=== PATIENT | male | born 1990 | race Caucasian/White ===

== ENCOUNTER 2019-06-27 20:09 | Emergency (ER) | payer OTHER ==
[~2019-06-27] VITALS: Ht 185.4 cm; Wt 83.9 kg
[2019-06-27 20:11] VITALS: BP_SYST 146
[2019-06-27 21:38] VITALS: BP_SYST 146
== END 2019-06-27 21:37 ==
LOC: SED 20:09
DX: Z02.89 Encounter for other administrative examinations (principal)
CPT/HCPCS: 99283